=== PATIENT | female | born 1985 | race African-American/Black ===

== ENCOUNTER 2017-01-19 00:15 | Day surgery (SDC) | payer OTHER ==
[2017-01-19 00:47] VITALS: BMI 41.3
[2017-01-19 00:48] VITALS: BP 133/83; TEMP 98.2
--- NOTE | 2017-01-19 01:22 | PDOC.LDHP ---
Labor and Delivery H&P Chief complaint: contractions HPI: 31 y/o [id number] at 37w6d, patient of Dr. Dain Edwards, presents via EMS with contractions since 11pm. Denies VB, LOF, or decreased FM. ROS neg for HEENT, cv, pulm, gi, gu, neuro, psych, skin, musculoskeletal or constitutional symptoms other than mentioned above. OB History Details: 2 prior term SVDs Current complications: none Current medications: pre-kevin vitamins Previous surgical history: none Allergies/Adverse Reactions: Allergies Allergy/AdvReac Type Severity Reaction Status Date / Time No Known Drug Allergies Allergy Verified 01/19/17 00:46 Social history: none - Physical Exam Vital signs reviewed and normal: yes General: NAD, resting Lungs: nonlabored breathing Abdomen: gravid Extremeties: no edema FHT: category 1 (130s, mod variability, + accels, single late decel when initially put on monitor) Glazier contractions every: 5-7 mins - Vaginal Exam cm dilated: 2 Effacement: 50% Station: -3 - Assessment 31 y/o at 37w6d with no e/o active labor. Initial late decel when put on monitor but none again over 2 hours of monitoring with overall reactive and reassuring NST. Likely due to positioning of patient on her back as it was resolved with change in patient position. - Plan -: D/c home with precautions. Advised to keep all appointments. Next appointment this morning.
[2017-01-20] MEDS ORDERED: FLU VACC QS2017-18 36 mo. & older 0.5 ML SYRINGE IM ONE (09:00)
== END 2017-01-19 02:45 | disposition home or self-care (01) ==
LOC: L&D/OP 00:15
PROVIDERS: ATTEND Family Medicine
DX: O47.1 False labor at or after 37 completed weeks of gestation (principal); Z3A.37 37 weeks gestation of pregnancy; Z79.899 Other long term (current) drug therapy

== ENCOUNTER 2017-01-31 04:06 | Inpatient (IN) | payer OTHER ==
[2017-01-31 04:28] VITALS: BMI 42.0
[2017-01-31] MEDS ORDERED: Lidocaine 1% (PF) 30 ML VIAL SC PRN (04:55)
[2017-01-31] MEDS ORDERED: Ibuprofen 800 MG TAB PO PRN (04:55)
[2017-01-31] MEDS ORDERED: Promethazine HCl 25 MG/ML VIAL IM PRN ×2 (04:55→06:33)
[2017-01-31] MEDS ORDERED: Ondansetron HCl/PF 4 MG/2 ML Vial IVP PRN ×2 (04:55→06:33)
[2017-01-31] MEDS ORDERED: HYDROcodone/Acetaminophen 5/325 mg Tablet PO PRN ×2 (04:55)
--- NOTE | 2017-01-31 04:59 | PDOC.LDHP ---
Labor and Delivery H&P HPI: 31 year old 3 Para 2 at 39 weeks 4 days, patient of Dr Dain Edwards ( unavailable) with contractions. No BERNARDO, no visual changes, no other complications. GBS negative. Romplete review odf systems negative. Good movement reported. Contractions are every 3-5 minutes. Current gestational age (weeks): 39 (39 weeks 4 days) Dating criteria: last menstrual period Grav: 3 Para: 2 Current complications: none Past Medical History: None Current medications: pre-kevin vitamins Previous surgical history: none Allergies/Adverse Reactions: Allergies Allergy/AdvReac Type Severity Reaction Status Date / Time No Known Drug Allergies Allergy Verified 01/19/17 00:46 - Physical Exam Vital signs reviewed and normal: yes (BP 133/83, Pulse 90s Afebrile) Heart: RRR Lungs: CTAB Abdomen: gravid Extremeties: no edema FHT: category 1 - Vaginal Exam cm dilated: 4 (4-5) Effacement: 90% Station: 0 - OB Labs GBS: negative - Assessment L&D Assessment: term patient in labor - Plan Plan: admit to L&D, labor augmentation if indicated, informed consent obtained, anesthesia consult for pain management (Dr Edwards not available, so we will assume care.)
--- NOTE | 2017-01-31 05:08 | PDOC.EVN ---
Event Note - Event Note Event Note: Correction of TYPO in H&P: Complete Review of Systems completed and otherwise negative unless specified in the HPI.
[2017-01-31] MEDS: Lactated Ringer's 1,000 ML IV SCH ×2 (05:20→07:36)
[2017-01-31 05:45] LABS: Hematocrit 31.6 % (36.0-47.0); Mean Platelet Volume 7.6 fL (7.4-10.4); Red Blood Cell (RBC) Count 3.85 mill/uL (4.20-5.40); White Blood Cell (WBC) Count 8.3 thou/uL (4.8-10.8)
[2017-01-31] MEDS ORDERED: Fentanyl 4 mcg/Marc 0.1% Cadd 100 ML ONE (05:49)
[2017-01-31] MEDS ORDERED: diphenhydrAMINE 50 MG/ML VIAL IVP PRN (06:33)
[2017-01-31] MEDS ORDERED: ePHEDrine/0.9% NaCl/PF SYRINGE 50 mg/10 ml SLOW IVP PRN (06:33)
[2017-01-31] MEDS ORDERED: Lactated Ringer's 500 ML IV PRN (06:33)
[2017-01-31] MEDS ORDERED: Eucerin (Mineral Oil/Petrolatum,White) 30 gm Jar TOP PRN (06:33)
[2017-01-31] MEDS ORDERED: Acetaminophen 325 MG TAB PO PRN (06:33)
[2017-01-31] MEDS ORDERED: Naloxone HCl 0.4 mg/ml Vial IVP PRN ×2 (06:33)
[2017-01-31] MEDS ORDERED: Communication Order-Pharmacy FS SCH (06:45)
[2017-01-31] MEDS ORDERED: Fentanyl 4mcg/Marcaine 0.1% Cassette 100 ML EPIDURAL SCH (06:45)
[2017-01-31] MEDS ORDERED: LR 500 ML/Oxytocin 10 units 500 ML IV SCH (09:30)
[2017-01-31] MEDS ORDERED: CEFAZOLIN/Water 2 GM/20 ML SYRINGE ONE (10:50)
[2017-01-31] MEDS ORDERED: Terbutaline Sulfate 1 MG/ML VIAL ONE (11:11)
[2017-01-31] MEDS ORDERED: Bupivacaine/Epinephrine 0.25% 30 ML VIAL ONE (11:11)
[2017-01-31] MEDS ORDERED: Misoprostol 200 MCG TAB ONE (11:18)
[2017-01-31] MEDS ORDERED: Misoprostol 200 MCG TAB RC SCH (11:30)
[2017-01-31] MEDS ORDERED: Misoprostol 200 MCG TAB PO SCH (11:30)
[2017-01-31] MEDS: LR / Pitocin 40 units/1000 ml 1,000 ML IV PRN ×2 (11:41→12:44)
--- NOTE | 2017-01-31 11:45 | ULT ---
OBSTETRIC SONOGRAM: HISTORY: Macrosomia. Third trimester gestation. FINDINGS: Multiple transabdominal sonographic views of the gravid uterus show a single intrauterine gestation in a cephalic presentation. A grade 3 placenta is anterior. Advanced age limits anatomic det ail. Amniotic fluid index equals 13. Heart motion is demonstrated at 127 beats per minute. Measurements are as follows: BIPARIETAL DIAMETER: 38 weeks 5 days : 38 weeks 3 day ABDOMINAL CIRCUMFERENCE: 39 weeks 3 days FEMUR LENGTH: 39 weeks 3 days ESTIMATED DATE OF DELIVERY BASED ON TODAY'S SONOGRAM: 02/11/2017 ESTIMATED WEIGHT: 8 lbs r oz HADLOCK PERCENTILE: 56% IMPRESSION: A single viable intrauterine gestation with estimated gestational age, based on today's sonogram, 38 weeks 3 days. POS: ISAI
[2017-01-31] MEDS ORDERED: Terbutaline Sulfate 1 MG/ML VIAL SC SCH (12:00)
--- NOTE | 2017-01-31 12:03 | PRG ---
DATE OF SERVICE: 01/31/2017 TIME OF EVALUATION: 07:45. LOCATION: Labor and Delivery bed #1. INTRAPARTUM NOTE In brief, I have reassessed the patient after initial admission, which was at 05:00. The patient in itially was admitted a cervical exam of 5 cm. She is now 8-9 cm, completely effaced but station rem ains at -2 due to the lack of descent at -2, with a bulging bag, I have elected to place a stat orde r for an estimated weight by ultrasound. It is important to note that on re-interview, nancy teresa denies a history of elizabeth cord gestational diabetes and my estimated weight remains the same as on admission, which is roughly about 8.5 pounds. However, due to the patient's obesity/BMI of 4 2, we will get an OB standard complete ultrasound for estimated weight just to help guide ana paula palacios. She may deliver before that. This has been explained to the patient. Again the indication for the ultrasound is rule out/suspected macrosomia in a non-diabetic patient. We will proceed wit h a stat ultrasound if possible prior to delivery. We will not perform amniotomy at this time as th e patient's station remains at -2 to -3, but the presentation is confirmed to be cephalic by palpati on of sutures.
--- NOTE | 2017-01-31 12:30 | PDOC.OPDEL ---
OB Operative/Delivery Note Delivery Dr/Surgeon: Michoacano Sheets Procedure/Post Delivery Dx: spontaneous vaginal delivery Weeks gestation: 39 Anesthesia: epidural - Additional Findings/Plan Placenta delivered: spontaneous (See resident physician delivery note for details. I was present for and supervised the of a live male with apgars of 8,9. Mom and baby in good condition.) Repaired Obstetrical Laceration: 1st degree Post delivery plan: routine recovery
[2017-01-31] MEDS ORDERED: Milk Of Magnesia 30 ML UDCUP PO PRN (14:08)
[2017-01-31] MEDS ORDERED: Adacel (T-DAP) 0.5 ML VIAL IM ONE (14:08)
[2017-01-31] MEDS ORDERED: Bisacodyl 10 MG SUPP PR PRN (14:08)
[2017-01-31] MEDS: Ferrous Sulfate 325 MG TAB PO SCH (19:59)
[2017-01-31] MEDS: Docusate Calcium (SURFAK) 240 MG CAP PO SCH (21:19)
[2017-02-01 05:15] LABS: Hematocrit 32.8 % (36.0-47.0); Mean Platelet Volume 7.5 fL (7.4-10.4); Red Blood Cell (RBC) Count 3.93 mill/uL (4.20-5.40)
[2017-02-01] MEDS ORDERED: Ibuprofen 800 MG TAB PO SCH (06:00)
--- NOTE | 2017-02-01 07:23 | PDOC.OPDEL ---
OB Operative/Delivery Note Delivery Dr/Surgeon: Dr. Sudeep Darnell, Dr. Jones (attending) Pre-Delivery Diagnosis: active labor, non-reassuring tracing Procedure/Post Delivery Dx: spontaneous vaginal delivery Weeks gestation: 39 (39.4) Anesthesia: epidural - Findings A Sex: male - 1 min: 8 - 5 min: 9 - Additional Findings/Plan Placenta delivered: spontaneous Repaired Obstetrical Laceration: 1st degree (hemostastic) Estimated blood loss: 500 Compilations/Other Findings: nuchal cord X 1 Post delivery plan: routine recovery
--- NOTE | 2017-02-01 07:30 | PDOC.PP ---
Post Progress Note Post Day #: 1 Vital Signs (12 hours) Temp Pulse Resp BP 02/01/17 01:00 CDT 97.7 F 77 18 122/80 Weight Weight 111.13 kg Result Diagrams: 02/01/17 05:01 Additional Labs: Post Labs Hep Bs Antigen Non-Reactive S/CO (NonReactive) 01/31/17 05:33 (1) (normal spontaneous vaginal delivery) Code(s): O80 - ENCOUNTER FOR FULL-TERM UNCOMPLICATED DELIVERY Status: Acute (2) Term of male Code(s): Z37.0 - SINGLE LIVE Status: Acute <Gisela Sheets - Last Filed: 02/01/17 07:29> Vital Signs (12 hours) Temp Pulse Resp BP 02/01/17 07:51 98.3 F 78 18 124/77 02/01/17 07:40 98.3 F 78 18 02/01/17 01:00 CDT 97.7 F 77 18 122/80 Weight Weight 111.13 kg Result Diagrams: 02/01/17 05:01 Additional Labs: Post Labs Hep Bs Antigen Non-Reactive S/CO (NonReactive) 01/31/17 05:33 <Brando Jones - Last Filed: 02/01/17 11:03> Attending Addendum - Attending Addendum I personally evaluated the patient and discussed the management with Dr. Sheets. I agree with the History, Examination, Assessment and Plan documented above with any addition or exceptions noted below. Patient is requesting discharge to home. Stable for discharge. <Brando Jones - Last Filed: 02/01/17 11:03>
[2017-02-01 07:52] VITALS: BP 124/77; TEMP 98.3
[2017-02-01] MEDS ORDERED: FLU VACC QS2017-18 36 mo. & older 0.5 ML SYRINGE IM ONE (09:00)
[2017-02-01] MEDS: Ferrous Sulfate 325 MG TAB PO SCH (09:55)
[2017-02-01] MEDS: Docusate Calcium (SURFAK) 240 MG CAP PO SCH (09:56)
== END 2017-02-01 13:45 | disposition home or self-care (01) | DRG 775 ==
LOC: L&D/OP 04:06 → L&D 05:00 → 3SW 14:09
PROVIDERS: ADMIT Family Medicine; ATTEND Family Medicine
PROC: 10E0XZZ Delivery of Products of Conception, External Approach (ICD-10-PCS; principal; 2017-01-31)
PROC: 0HQ9XZZ Repair Perineum Skin, External Approach (ICD-10-PCS; 2017-01-31)
DX: O70.0 First degree perineal laceration during delivery (principal); Z68.41 Body mass index [BMI] 40.0-44.9, adult; O69.81X0 Labor and delivery complicated by cord around neck, without compression, not applicable or unspecified; O99.214 Obesity complicating childbirth; E66.9 Obesity, unspecified; Z3A.39 39 weeks gestation of pregnancy; Z37.0 Single live birth
CPT/HCPCS: 36415; 76805; 85027; 86780; 87340; 87389; 90471; 90682; 90715; G0008; J2405; J3105; J7120; Q2036

== ENCOUNTER 2018-02-12 13:12 | Emergency (ER) | payer OTHER, SELFPAY | END 2018-02-12 14:36 | disposition home or self-care (01) | LOC: ERS 13:12 | DX: N64.4 Mastodynia (principal); F17.210 Nicotine dependence, cigarettes, uncomplicated | CPT/HCPCS: 99283 ==

== ENCOUNTER 2018-07-22 11:06 | Emergency (ER) | payer SELFPAY | END 2018-07-22 11:11 | disposition left against medical advice (07) | LOC: ERS 11:06 | DX: Z53.21 Procedure and treatment not carried out due to patient leaving prior to being seen by health care provider (principal) ==

== ENCOUNTER 2018-07-25 10:14 | Emergency (ER) | payer SELFPAY ==
[2018-07-25 10:46] LABS: Bilirubin Negative (Negative); Blood, Urine Negative (Negative); Clarity CLEAR (Clear); Glucose, Urine (Dipstick) Negative (Negative); Leukocyte Trace (Negative); Nitrite Negative (Negative); Protein, Urine (Dipstick) Trace mg/dL (Neg-Trace); Specific Gravity, Urine 1.028 (1.002-1.036)
[2018-07-25 10:47] LABS: Pregnancy Test - Urine (BHCG) Negative (Negative); Pregu Control Background? CLEAR/WHITE (CLR/WHITE); Pregu Control Bar Appear? YES (CONTROL BAR); Specific Gravity 1.028 (1.002-1.036)
[2018-07-25 10:48] LABS: Bacteria/HPF 1+ HPF (None Seen); Hyaline Casts/LPF 7-10 HYALINE CAST LPF (0-3 Hyaline); Pathc Cast-AUWi Flag 2.04 (0-2.49); RBC/HPF 0-3 HPF (0-3)
== END 2018-07-25 11:13 | disposition home or self-care (01) ==
LOC: ERS 10:14
DX: N39.0 Urinary tract infection, site not specified (principal)
CPT/HCPCS: 81003; 81015; 81025; 87086; 99284

== ENCOUNTER 2021-11-08 14:22 | Emergency (ER) | payer SELFPAY ==
[2021-11-08] MEDS ORDERED: Boostrix 0.5 ML (Tdap) VIAL ONE (15:13)
== END 2021-11-08 15:43 | disposition home or self-care (01) ==
LOC: ERS 14:22
DX: S99.921A Unspecified injury of right foot, initial encounter (principal); W45.0XXA Nail entering through skin, initial encounter; Z87.891 Personal history of nicotine dependence
CPT/HCPCS: 90471; 90715; 99283

== ENCOUNTER 2024-01-31 14:28 | Emergency (ER) | payer SELFPAY | END 2024-01-31 16:54 | disposition home or self-care (01) | LOC: ERS 14:28 | DX: D17.21 Benign lipomatous neoplasm of skin and subcutaneous tissue of right arm (principal); R07.89 Other chest pain | CPT/HCPCS: 71046; 93005 ==